=== PATIENT | female | born 1990 | race Caucasian/White ===

== ENCOUNTER 2016-07-29 | Day surgery (SDC) | payer OTHER | END 2016-07-29 11:16 | disposition home or self-care (01) | DX: Z53.9 Procedure and treatment not carried out, unspecified reason (principal) ==

== ENCOUNTER 2016-08-13 02:46 | Emergency (ER) | payer OTHER ==
[2016-08-13] MEDS ORDERED: IBUPROFEN 400 MG TABLET PO STA (03:45)
[2016-08-13] MEDS ORDERED: ACETAMINOPHEN 325 MG TABLET PO STA (03:45)
[2016-08-13] MEDS ORDERED: BENZONATATE 100 MG CAPSULE PO STA (03:45)
[2016-08-13] MEDS ORDERED: IBUPROFEN 400 MG TABLET PO ONE (03:48)
[2016-08-13] MEDS ORDERED: ACETAMINOPHEN 325 MG TABLET PO ONE (03:48)
[2016-08-13] MEDS ORDERED: BENZONATATE 100 MG CAPSULE PO ONE (03:48)
== END 2016-08-13 04:55 | disposition home or self-care (01) ==
DX: J06.9 Acute upper respiratory infection, unspecified (principal)
CPT/HCPCS: 36415; 71020; 80053; 81003; 81025; 83690; 85025; 86308; 99283; 99284; A9270

== ENCOUNTER 2016-09-09 06:16 | Day surgery (SDC) | payer OTHER ==
[2016-09-09] MEDS ORDERED: LACTATED RINGERS 1,000 ML IV ONE (06:52)
== END 2016-09-09 06:17 | disposition home or self-care (01) ==
DX: N83.201 Unspecified ovarian cyst, right side (principal); Z53.09 Procedure and treatment not carried out because of other contraindication; Z83.3 Family history of diabetes mellitus; Z82.49 Family history of ischemic heart disease and other diseases of the circulatory system; Z87.891 Personal history of nicotine dependence
CPT/HCPCS: 81025; J7120

== ENCOUNTER 2016-11-12 10:38 | Outpatient (CLI) | payer OTHER | END 2016-11-12 10:39 | disposition home or self-care (01) | DX: Z36 Encounter for antenatal screening of mother (principal) ==

== ENCOUNTER 2016-12-21 07:20 | Outpatient (CLI) | payer OTHER ==
--- NOTE | 2016-12-21 15:44 | Ultrasound Report ---
OB ULTRASOUND: 12/21/2016 CLINICAL INDICATION: anatomy. TECHNIQUE: Real-time scanning was performed with bilingual inside sales representative static images obtained. LAST MENSTRUAL PERIOD --- Clinical Age --- US Age 22 weeks 1 day EFW Hadlock 463 g EFW% Hadlock --- Heart Rate 148 bpm EDC --- US EDC 04/25/2017 BPD [place]lock 22 weeks 2 days; Mean mm 53.4 HC [place] 22 weeks 2 days; Mean mm 201.2 AC [place] 21 weeks 6 days; Mean mm 168.3 FL [place] 22 weeks 0 days; Mean mm 37.5 Presentation cephalic Placental Location anterior Cervical Length 3.4 cm Amniotic Fluid 11.6 cm FINDINGS: There is a single viable intrauterine gestation, in cephalic presentation. heart rate is 148 BPM. The placenta is anterior, without evidence of previa. Amniotic fluid volume is normal, with an KEMAL of 11.6. By size, the fetus measures 22.1 weeks (uncertain LMP). The following anatomic structures were visualized and appear normal: The intracranial contents, including the ventricles and posterior fossa; the lips and orbits; the spine; the heart, including 4 chamber view and outflow tracts, and diaphragm; the abdominal contents, including the stomach, the bilateral kidneys, and urinary bladder, as well as a normal 3 vessel cord insertion; 4 limbs. No free fluid is present. Note is made of an 8.0 x 8.0 x 6.2 cm right ovarian cyst. The left adnexa appears unremarkable. IMPRESSION: SINGLE VIABLE INTRAUTERINE GESTATION, MEASURING 22.1 WEEKS BY SIZE. NORMAL ANATOMIC SURVEY. AN 8 CM RIGHT OVARIAN CYST. MTDD
== END 2016-12-21 07:21 | disposition home or self-care (01) ==
LOC: DI 07:20
PROVIDERS: ATTEND Obstetrics & Gynecology
DX: Z34.82 Encounter for supervision of other normal pregnancy, second trimester (principal)
CPT/HCPCS: 76811

== ENCOUNTER 2016-12-27 20:45 | Emergency (ER) | payer OTHER ==
--- NOTE | 2016-12-27 20:57 | ED Physician Documentation ---
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 Pain with walking and has feeling of grinding in pubis area with walking. Pain goes down both anterior thighs but no numbness nor weakness. No noted incontinence of urine (frequency of urine same as has been having with ).) Where injury occurred: Home Timing - onset: Today Timing - duration: Hours Timing - details: Abrupt onset, Still present Quality: Pain, Aching Improved by: Rest Worsened by: Moving (low back and also worse with walking), Palpating Associated symptoms: No: Fever, Weakness, Numbness, Incontinent of urine Similar symptoms before: Diagnosis (has been having pains in pelvis and pubis with walking, deemed due to stretching of the pelvic ligaments during . Has not previously had the low back pain nor the abruptness of the pain like she did today.) Recently seen: Clinic (normal PROVIDER RELATIONS REPRESENTATIVE appt couple weeks ago.) Review of Systems Constitutional: denies: Fever, Chills Nose: denies: Rhinorrhea / runny nose, Congestion Throat: denies: Sore throat Respiratory: denies: Cough GI: reports: Nausea. denies: Abdominal Pain, Vomiting, Diarrhea : reports: Frequency. 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: Ovarian cysts : None HEENT: Chronic vision loss Psych: None Musculoskeletal: None Derm: None - Past Surgical History Past Surgical History: No - Present Medications Home Medications: Ambulatory Orders Medication Instructions Recorded Confirmed Hydrocodone/Acetaminophen [[place] 1 each PO Q6H PRN #10 tablet 12/27/16 5-325 Tablet] Ibuprofen [Motrin] 600 mg PO TID #15 tab 12/27/16 - Allergies Allergies/Adverse Reactions: Allergies Allergy/AdvReac Type Severity Reaction Status Date / Time No Known Drug Allergies Allergy Verified 12/27/16 20:53 - Social History Does the pt smoke?: Yes Smoking Status: Never smoker Does the pt drink ETOH?: No Does the pt have substance abuse?: No - Immunizations Immunizations are current?: Yes - POLST Patient has POLST: No PD ED PE NORMAL - Vitals Vital signs reviewed: Yes - General General: Alert and oriented X 3, Well developed/nourished - Cardiac Cardiac: RRR, No murmur - Respiratory Respiratory: Clear bilaterally - Abdomen Abdomen: Soft, Non tender, Other (gravid with fundus just above umbilicus. Not tender. Bedside U/S showing good movement, FHR, and fluid amount. Head is not engaged in pelvis at this time. ) - Female Female : Deferred - Rectal Rectal: Deferred - Back Back: No CVA TTP, Other (tender in low back paravertebral muscles without rash/ sores. ) - Derm Derm: Normal color, Warm and dry, No rash - Extremities Extremities: No tenderness to palpate, Normal ROM s pain, No calf tenderness / cord - Neuro Neuro: Alert and oriented X 3, No motor deficit, No sensory deficit - Psych Psych: Normal mood, Normal affect Results - Vitals Vitals: Vital Signs - 24 hr 12/27/16 12/27/16 20:49 21:59 Temperature 37 C Heart Rate 90 89 Respiratory 18 20 Rate Blood Pressure 113/72 134/72 H O2 Saturation 99 99 Oxygen O2 Source Room air - Labs Labs: Laboratory Tests 12/27/16 21:40 Urine Color YELLOW Urine Clarity CLEAR Urine pH 6.0 Ur Specific [place] >=1.030 H Urine Protein NEGATIVE Urine Glucose (UA) NEGATIVE Urine Ketones NEGATIVE Urine Occult Blood NEGATIVE Urine Nitrite NEGATIVE Urine Bilirubin NEGATIVE Urine Urobilinogen 0.2 (NORMAL) Ur Leukocyte Esterase NEGATIVE Ur Microscopic Review NOT INDICATED Urine Culture Comments NOT INDICATED PD MEDICAL DECISION MAKING - ED course Complexity details: re-evaluated patient (feeling improved with PO meds. ), considered differential (Consider pelvic ligament laxity with abrupt pain. Has pain in low back as well with radiation to thighs, but no leg weakness nor numbness. Could be abrupt disc processs but does not have indication for urgent imaging, such as MRI. ), d/w patient, d/w tour consultant (Dr. Corey) Departure - Departure Disposition: 01 Home, Self Care Clinical Impression: Pelvic pain affecting in second trimester, antepartum Condition: Stable Record reviewed to determine appropriate education?: Yes Instructions: ED Low Back Pain Injury Follow-Up: Richard Mathis MD [Provider Admit Priv/Credential] - Prescriptions: Ibuprofen [Motrin] 600 mg PO TID #15 tab Hydrocodone/Acetaminophen [[place] 5-325 Tablet] 1 each PO Q6H PRN #10 tablet PRN Reason: Pain Comments: Presume some abrupt stretch or misalignment of the pelvic ligaments/bones, though consider if there might have been a displacement of one of the lumbar discs with pressure on a nerve. At this point in the it is okay to use Ibuprofen short term and add pain meds if needed (Tylenol 4 times daily and add hydrocodone if needed for worse pain). Follow up with Dr. Mathis, call tomorrow for appt time. Massage/ chiropractic treatments are okay. If the pain persists/ concern for disc problem, your HOUSE WRECKER/PMD could consider MRI of the low back, but would not be emergent/urgent at this time. Return/follow up sooner if you develop numbness/weakness of the legs or other concerns. Discharge Date/Time: 12/27/16 22:13
[2016-12-27] MEDS ORDERED: HYDROcod/ACETAM 5/325 MG TABLET PO STA (21:22)
[2016-12-27] MEDS ORDERED: IBUPROFEN 600 MG TABLET PO STA (21:22)
[2016-12-27] MEDS ORDERED: HYDROcod/ACETAM 5/325 MG TABLET ONE (21:32)
[2016-12-27] MEDS ORDERED: IBUPROFEN 600 MG TABLET PO ONE (21:32)
[2016-12-27] MEDS ORDERED: HYDROcod/ACET 5/325 Prepack 6 PO ONE ×2 (21:49→21:57)
[2016-12-27 21:52] LABS: BILIRUBIN,URINE NEGATIVE (NEGATIVE); UA CHARGE (STRIP ONLY) YES; UR CULTURE IF IND NOT INDICATED
[2016-12-27 22:00] VITALS: BP 134/72
== END 2016-12-27 22:13 | disposition home or self-care (01) ==
LOC: ED 20:45
DX: O26.892 Other specified pregnancy related conditions, second trimester (principal); R10.2 Pelvic and perineal pain; O99.89 Other specified diseases and conditions complicating pregnancy, childbirth and the puerperium; M54.5 Low back pain; M79.652 Pain in left thigh; M79.651 Pain in right thigh
CPT/HCPCS: 81003; 99283; 99284; A9270; 81001; 87086

== ENCOUNTER 2017-02-25 13:25 | Outpatient (CLI) | payer OTHER | END 2017-02-25 13:26 | disposition home or self-care (01) | LOC: LAB 13:25 | PROVIDERS: ATTEND Obstetrics & Gynecology | DX: Z36 Encounter for antenatal screening of mother (principal) | CPT/HCPCS: 36415; 82950; 85018; 86850 ==

== ENCOUNTER 2017-03-02 13:58 | Outpatient (CLI) | payer OTHER ==
[2017-03-02 15:09] LABS: BILIRUBIN,URINE NEGATIVE (NEGATIVE)
[2017-03-02 15:12] LABS: UA CHARGE (STRIP ONLY) YES; UR CULTURE IF IND NOT INDICATED
[2017-03-02 15:58] VITALS: BP 110/63
== END 2017-03-02 15:35 | disposition home or self-care (01) ==
LOC: WFO 13:58 → FBP 13:59 → WFO 15:35
PROVIDERS: ATTEND Obstetrics & Gynecology
DX: O21.2 Late vomiting of pregnancy (principal); Z3A.32 32 weeks gestation of pregnancy; O99.89 Other specified diseases and conditions complicating pregnancy, childbirth and the puerperium; R19.7 Diarrhea, unspecified
CPT/HCPCS: 81001; 81003; 87086; 99213

== ENCOUNTER 2017-03-23 08:00 | Outpatient (CLI) | payer OTHER | END 2017-03-23 08:01 | disposition home or self-care (01) | LOC: LAB.R 08:00 | PROVIDERS: ATTEND Obstetrics & Gynecology | DX: Z34.83 Encounter for supervision of other normal pregnancy, third trimester (principal) | CPT/HCPCS: 87081 ==

== ENCOUNTER 2017-04-06 18:28 | Outpatient (CLI) | payer OTHER ==
[2017-04-06 18:45] VITALS: BP 132/79
== END 2017-04-06 19:55 | disposition home or self-care (01) ==
LOC: WFO 18:28 → FBP 18:30 → WFO 19:55
PROVIDERS: ATTEND Obstetrics & Gynecology
DX: O36.8130 Decreased fetal movements, third trimester, not applicable or unspecified (principal); Z3A.38 38 weeks gestation of pregnancy
CPT/HCPCS: 59025

== ENCOUNTER 2017-04-08 15:30 | Outpatient (CLI) | payer OTHER ==
[2017-04-08 15:53] VITALS: BP 135/87
== END 2017-04-08 16:09 | disposition home or self-care (01) ==
LOC: WFO 15:30 → FBP 15:32 → WFO 15:32
PROVIDERS: ATTEND Obstetrics & Gynecology
DX: O36.8130 Decreased fetal movements, third trimester, not applicable or unspecified (principal); Z3A.38 38 weeks gestation of pregnancy
CPT/HCPCS: 99213

== ENCOUNTER 2017-04-20 04:39 | Outpatient (CLI) | payer OTHER ==
[2017-04-20 04:57] VITALS: BP 123/79
== END 2017-04-20 07:10 | disposition home or self-care (01) ==
LOC: WFO 04:39 → FBP 04:40 → WFO 07:10
PROVIDERS: ATTEND Obstetrics & Gynecology
DX: Z34.83 Encounter for supervision of other normal pregnancy, third trimester (principal)
CPT/HCPCS: 99212

== ENCOUNTER 2017-04-23 18:43 | Inpatient (IN) | payer OTHER ==
[2017-04-23] MEDS ORDERED: fentaNYL 100 MCG/2 ML VIAL IVP PRN (20:00)
[2017-04-23] MEDS ORDERED: LACTATED RINGERS 1,000 ML IV SCH (20:00)
[2017-04-23] MEDS ORDERED: SODIUM CHLORIDE FLUSH 0.9% 10 ML SYRINGE IVP PRN (20:00)
[2017-04-23] MEDS ORDERED: ONDANSETRON 4 MG/2 ML VIAL IVP PRN (20:00)
[2017-04-23] MEDS ORDERED: OXYTOCIN/SODIUM CHLORIDE 250 ML IV ONE ×2 (20:10→23:08)
[2017-04-23 20:43] LABS: BASOPHILS # (AUTO) 0.1 10^3/uL (0.0-0.1); BASOPHILS % (AUTO) 0.6 %; EOSINOPHILS # (AUTO) 0.2 10^3/uL (0.0-0.7); EOSINOPHILS % (AUTO) 1.1 %; HCT - HEMATOCRIT 37.4 % (37.0-47.0); HGB - HEMOGLOBIN 12.6 g/dL (12.0-16.0); LYMPHOCYTES # (AUTO) 3.1 10^3/uL (1.5-3.5); LYMPHOCYTES % (AUTO) 20.6 %; MEAN CORPUSCULAR HEMOGLOBIN 29.6 pg (27.0-31.0); MEAN CORPUSCULAR HGB CONC 33.8 g/dL (32.0-36.0); MEAN CORPUSCULAR VOLUME 87.7 fL (81.0-99.0); MEAN PLATELET VOLUME 8.4 fL (7.9-10.8); MONOCYTES % (AUTO) 6.5 %; NEUTROPHILS # (AUTO) 10.7 10^3/uL (1.5-6.6); NEUTROPHILS % (AUTO) 71.2 %; RED BLOOD COUNT 4.26 10^6/uL (4.20-5.40); RED CELL DISTRIBUTION WIDTH 13.4 % (12.0-15.0)
[2017-04-23] MEDS ORDERED: fent/BUPIV 2 MCG/0.125% 0 ML EP ONE (20:58)
[2017-04-23] MEDS ORDERED: SODIUM CHLORIDE FLUSH 0.9% 10 ML SYRINGE IVP SCH (22:00)
[2017-04-23] MEDS ORDERED: MINERAL OIL LIGHT 10 ML MC ONE (22:20)
[2017-04-23] MEDS ORDERED: LIDOCAINE 1% 50 ML MDV ONE (22:20)
[2017-04-23] MEDS ORDERED: OXYTOCIN 10 UNIT/ML VIAL ONE (22:54)
[2017-04-23] MEDS ORDERED: MAGNESIUM HYDROXIDE 2,400 MG/30 ML UDC PO PRN (23:08)
[2017-04-23] MEDS ORDERED: SIMETHICONE CHEW 80 MG TABLET PO PRN (23:08)
--- NOTE | 2017-04-23 23:17 | DELIVERY NOTE ---
Delivery Note - Labor Labor: positive: Spontaneous - Delivery Method Delivery Method: positive: Spontaneous vaginal delivery - Presentation Presentation: positive: Vertex, OA - occiput anterior - Nuchal Cord Nuchal Cord: positive: None - Anesthetic Anesthetic: positive: Lidocaine - 1% plain Volume: positive: Other (10) - Amniotic Fluid Description Amniotic Fluid Description: positive: Clear - Laceration Laceration: positive: 2nd degree - Suture Suture Type: positive: Vicryl Suture Size: positive: 3-0 - Delivery Outcome Delivery Outcome: positive: Livebirth - [place] : positive: Placed in direct skin contact with mother sex: positive: Male : 9 : 9 - Cord Cord: positive: 3 vessels - Placenta Placenta: positive: Intact, Spontaneous - Estimated Blood Loss Estimated Blood Loss (in cc): 300 - Post Delivery Events Post Delivery Events: positive: No post delivery events - Delivery Comments (Free Text/Narrative) Delivery Comments (Free Text/Narrative): 26 yo with a 40w3d IUP presents to L&D with complaints of LOF. Initial exam /-2. Patient admitted to L&D. Could not tolerate epidural placement. AROM with clear fluid. of a viable male fetus, Apgars 9/9. Placenta delivered spontaneously, intact with 3VC. 2nd degree perineal laceration repaired with 3-0 vicryl. EBL 300 mL. No complications.
[2017-04-24] MEDS: CELECOXIB 100 MG CAPSULE PO SCH ×3 (00:25→20:34)
[2017-04-24] MEDS ORDERED: CELECOXIB 100 MG CAPSULE PO ONE (00:28)
[2017-04-24] MEDS: HYDROcod/ACETAM 5/325 MG TABLET PO PRN ×4 (00:55→17:28)
[2017-04-24] MEDS: WITCH HAZEL/GLYCERIN 1 EACH MED..PAD TOP PRN ×2 (01:05→20:35)
[2017-04-24] MEDS: HYDROCORTISONE/PRAMOXINE 10 GM PR PRN ×2 (01:18→20:35)
--- NOTE | 2017-04-24 02:15 | HISTORY & PHYSICAL EXAMINATION ---
DATE OF ADMISSION: 04/23/2017 IDENTIFICATION: This is a 26-year-old G3, P2-0-0-2 with a 40-3/7 week intrauterine . EDC is 04/21/2017 consistent with 13 week ultrasound. HISTORY OF PRESENT ILLNESS: The patient presents today with complaints of loss of fluid at about 1300 hours on 04/22/2017. The patient states that she had a little bit of fluid coming per vagina and the n later today, when she went to [facility], she had a larger gush of water. She states that the baby is m oving well. Denies any vaginal bleeding. The baby is moving well and she does have some small pain se condary to contractions. On examination, she is negative Nitrazine and pooling. However, on cervical examination, she is 7 cm dilated, 70% effaced, and -2 station. She is anthony approximately every 3-5 minutes. heart tones are reactive, category 1. There is good long-term variability and there are no decelerations. PAST MEDICAL HISTORY: Distant history of epilepsy, but there is no seizure activity for over 5 years. PAST SURGICAL HISTORY: Status post laparoscopic ovarian cystectomy in 09/[address] White. ALLERGIES: NO KNOWN DRUG ALLERGIES. MEDICATIONS: vitamins. SOCIAL HISTORY: She denies any tobacco, alcohol or illicit drug use. She is to Herman. They hav e 2 kids, Cristi and [place]. This is a male fetus and she does intend to breast feed. She also phyllis res an epidural for pain control and she will most likely use the [facility] for peds. PAST OBSTETRICAL HISTORY: Two term spontaneous vaginal deliveries, one at 40 weeks and the second one at 41 weeks. No bleeding or hypertensive issues. PAST GYNECOLOGIC HISTORY: She had one abnormal Pap smear with spontaneous resolution. She has been tr eated for chlamydia in the distant past. FAMILY HISTORY: Mother had type 1 diabetes and at age 44. Hypertension in her father. There is n o female carcinoma. REVIEW OF SYSTEMS Negative unless otherwise stated. OBJECTIVE: VITAL SIGNS: Temperature is 98.4, heart rate 105, blood pressure 118/76, respirations 16. O2 saturati on 99% on room air. GENERAL: The patient is a well-developed, well-nourished female in no apparent distress. e is alert and oriented x3. CARDIOVASCULAR: Rate is regular, no murmurs or rubs. PULMONARY: Lungs clear to auscultation bilaterally. ABDOMEN: Gravid, nontender. Estimated weight is 8 pounds. LABORATORY DATA: laboratories reveal that she is A positive, antibody screen negative, HIV n egative, RPR nonreactive, rubella immune. Hepatitis B surface antigen is nonreactive, 1 hour GTT is 1 33 and GBS is negative. ASSESSMENT: 1. A 26-year-old G3, P2-0-0-2 with a 40-3/7 week intrauterine . 2. Active labor. PLAN: 1. Will admit to Labor and Delivery. 2. Will obtain a CBC and type and hold. 3. Epidural for pain control. 4. Expect spontaneous vaginal delivery. JOB #: [id number] EXT JOB #:[id number]
[2017-04-24] MEDS: ACETAMINOPHEN 325 MG TABLET PO SCH ×3 (02:27→08:48)
[2017-04-24] MEDS: DOCUSATE SODIUM 100 MG CAPSULE PO SCH ×2 (08:48→20:35)
--- NOTE | 2017-04-24 09:22 | PROVIDER PROGRESS NOTE ---
Subjective - Prog Note Date Prog Note Date: 04/24/17 Prog Note Time: 09:18 - Subjective Pt reports feeling: Improved Subjective: Patient sitting in bed, on her smart phone. Ran asleep in the visitor' s bed. Baby sleeping beside Loretta in the bassinet. Loretta only got about 15 minutes of sleep. Feeling much better. Would like to go home today. Objective - Vital Signs/Intake & Output Reviewed Vital Signs: Yes Vital Signs: Vital Signs x48h Temp Pulse Resp BP Pulse Ox 04/24/17 08:52 97.7 F 78 16 130/81 H 100 04/24/17 04:32 97.9 F 67 18 133/75 H 99 Intake & Output: Intake & Output 04/21/17 04/22/17 04/23/17 04/24/17 23:59 23:59 23:59 23:59 Intake Total 1500 Output Total 900 Balance 600 - Objective General Appearance: positive: No acute distress Neurologic/Psychiatric: positive: Oriented x3 - Lab Results Fish Bones: 04/23/17 20:13 Other Labs: Lab Results x24hrs 04/23/17 Range/Units 20:13 WBC 15.0 H (4.8-10.8) x10^3/uL RBC 4.26 (4.20-5.40) 10^6/uL Hgb 12.6 (12.0-16.0) g/dL Hct 37.4 (37.0-47.0) % MCV 87.7 (81.0-99.0) fL MCH 29.6 (27.0-31.0) pg MCHC 33.8 (32.0-36.0) g/dL RDW 13.4 (12.0-15.0) % Plt Count 245 (130-450) 10^3/uL MPV 8.4 (7.9-10.8) fL Neut # 10.7 H (1.5-6.6) 10^3/uL Lymph # 3.1 (1.5-3.5) 10^3/uL [place] # 1.0 (0.0-1.0) 10^3/uL Eos # 0.2 (0.0-0.7) 10^3/uL Baso # 0.1 (0.0-0.1) 10^3/uL Absolute Nucleated RBC 0.00 x10^3/uL Nucleated RBC % 0.0 /100WBC Assessment/Plan - Problem List (1) Delivery normal Impression: 26 yo S/p 04/23/2017 Normal recovery Routine care Anticipate discharge to home tomorrow. Rx fax'ed to [facility]. Handwritten Rx for vicodin ready for her. Patient to follow up with me at [facility] in 6 weeks for a routine exam. Will also discuss contraception at that time. was discussing permanent sterilization for both himself and Loretta. Call for worsening fevers, chills, abdominal pain or vaginal bleeding.
--- NOTE | 2017-04-24 12:10 | PROVIDER PROGRESS NOTE ---
Subjective - Prog Note Date Prog Note Date: 04/24/17 Prog Note Time: 12:07 - Subjective Pt reports feeling: Improved Objective - Vital Signs/Intake & Output Vital Signs: Vital Signs x48h Temp Pulse Resp BP Pulse Ox 04/24/17 08:52 97.7 F 78 16 130/81 H 100 04/24/17 04:32 97.9 F 67 18 133/75 H 99 Intake & Output: Intake & Output 04/21/17 04/22/17 04/23/17 04/24/17 23:59 23:59 23:59 23:59 Intake Total 1500 Output Total 900 Balance 600 - Lab Results Fish Bones: 04/23/17 20:13 Other Labs: Lab Results x24hrs 04/23/17 Range/Units 20:13 WBC 15.0 H (4.8-10.8) x10^3/uL RBC 4.26 (4.20-5.40) 10^6/uL Hgb 12.6 (12.0-16.0) g/dL Hct 37.4 (37.0-47.0) % MCV 87.7 (81.0-99.0) fL MCH 29.6 (27.0-31.0) pg MCHC 33.8 (32.0-36.0) g/dL RDW 13.4 (12.0-15.0) % Plt Count 245 (130-450) 10^3/uL MPV 8.4 (7.9-10.8) fL Neut # 10.7 H (1.5-6.6) 10^3/uL Lymph # 3.1 (1.5-3.5) 10^3/uL [place] # 1.0 (0.0-1.0) 10^3/uL Eos # 0.2 (0.0-0.7) 10^3/uL Baso # 0.1 (0.0-0.1) 10^3/uL Absolute Nucleated RBC 0.00 x10^3/uL Nucleated RBC % 0.0 /100WBC Assessment/Plan - Problem List (1) Delivery normal Impression: Patient has verbalized to Dr. Waterman that she wants to leave [place]. Willing to leave at 11 PM tonight if everything OK with the baby. Patient stable and doing well. Will discharge patient home tonight if baby makes criteria. Discharge Plan Disposition: Home, Self Care Condition: Good Diet: Regular Activity Restrictions: Activity as Tolerated Shower Restrictions: No Driving Restrictions: Yes (Do not drive after taking vicodin) No Smoking: If you smoke, Please STOP! Call for help.
[2017-04-24 20:13] VITALS: BP 149/75
--- NOTE | 2017-04-24 22:58 | Labor Flowsheet ---
Labor Flowsheet Datetime Report Generated by CPN: 04/24/2017 22:57 Datetime: 04/24/2017 20:05 VITAL SIGNS NBP Sys/Honey/Mean (mmHg): 149 : 75 : 88 Pulse: 81 SpO2 (%): 100 Datetime: 04/23/2017 22:40 UTERINE ACTIVITY Monitor Mode: External Frequency (min): 2-4 Quality: Strong Duration (sec): 90-120 Pattern: Normal: <= 5 Contractions in 10 Minutes Resting Tone (Palpate): Relaxed Contraction Comments: pushing ASSESSMENT A Monitor Mode: External US FHR Baseline Rate : 130 Variability: Moderate 6-25 bpm Accelerations: 15X15 Decelerations: Early Actions for Decelerations: Oxygen Applied Category: Category II Datetime: 04/23/2017 22:33 PATIENT CARE Patient Position/Activity: Semi-Fowlers (Annotations: starting to push) Datetime: 04/23/2017 22:29 Comments: earlies with some contractions to 110 with return to baseline Datetime: 04/23/2017 22:24 Vaginal Bleeding: None Cervix, Consistency: Soft Cervix, Position: Anterior STAGE 2 Pushing: Urge to Push Datetime: 04/23/2017 22:11 VAGINAL EXAM Dilatation (cm): 7.0 Effacement (%): 100 Station: 0 Exam by: Dr. Ribera Membrane Status: Ruptured Membranes Rupture Method: Artificial Amniotic Fluid Color: Clear Amniotic Fluid Amount: Moderate Amniotic Fluid Odor: Normal Membrane Comments: AROM performed by Dr. Ribera Datetime: 04/23/2017 22:05 COMMUNICATION LaborFlag: Labor Datetime: 04/23/2017 21:56 MEDICATIONS Analgesics/Sedatives: Fentanyl (mcg) @ (Annotations: 50) Datetime: 04/23/2017 21:37 FHR Baseline Changes: No Baseline Change Comfort Measures: out of jacuzzi, back to bed per pt request. Datetime: 04/23/2017 21:07 ANESTHESIA Anesthesia Plans: Other (Annotations: pt has decided she does not want epidural. Difficulty holdin g still for placement. Per anesthesia, she can reattempt later if pt requests and time allows.) Datetime: 04/23/2017 20:55 Anesthesia Interview: E Epidural Positioning: Sitting Datetime: 04/23/2017 20:35 Anesthesia Comments: anesthesia called and notified of pt request for epidural
--- NOTE | 2017-04-25 06:20 | DISCHARGE SUMMARY ---
DATE OF ADMISSION: 04/23/2017 DATE OF DISCHARGE: 04/24/2017 DIAGNOSES ON ADMISSION 1. A 26-year-old G3, P2-0-0-2 with a 40-3/7-week intrauterine . 2. Active labor. DIAGNOSES ON DISCHARGE 1. A 26-year-old G3, P3-0-0-3 status post spontaneous vaginal delivery on 04/23/2017. 2. Normal recovery. BRIEF HISTORY: This is a patient of [facility] who presented on 04/23/2017 with comp laints of loss of fluid. She was found to be in active labor at 7 cm dilation, 70% effacement and -2 station. The patient was admitted to the hospital. She could not tolerate an epidural and therefore d id not have any pain control for delivery. She spontaneously delivered a male with Apgars of 9 and 9 at 1 and 5 minutes, respectively. Baby weighed 3839 grams. The patient sustained a second-degr ee perineal laceration that was repaired with 3-0 Vicryl. EBL was 300 mL. There were no complications . Her course has been unremarkable. She is ambulating and tolerating a regular diet. She was urinating without difficulty, and her pain is controlled with medications. She will be discharged to home on 04/25/2017. I have already faxed a prescription over to the [facility] pharmacy for her care including ibuprofen and docusate. A handwritten prescription for Vicodin is available for the p atient if she so desires. She is to see me in [address] [facility] for a routine po stpartum visit. We will discuss contraception at that time. She may be considering permanent steriliz ation. She is to call should she have any worsening fevers, chills, abdominal pain or vaginal bleedin g. JOB #: [id number] EXT JOB #:[id number]
== END 2017-04-24 22:25 | disposition home or self-care (01) | DRG 775 ==
LOC: WFO 18:43 → FBP 18:44 → WFO 19:59 → FBP 20:00
PROVIDERS: ADMIT Obstetrics & Gynecology; ATTEND Obstetrics & Gynecology
PROC: 10E0XZZ Delivery of Products of Conception, External Approach (ICD-10-PCS; principal; 2017-04-23)
PROC: 0KQM0ZZ Repair Perineum Muscle, Open Approach (ICD-10-PCS; 2017-04-23)
PROC: 10907ZC Drainage of Amniotic Fluid, Therapeutic from Products of Conception, Via Natural or Artificial Opening (ICD-10-PCS; 2017-04-23)
DX: O70.1 Second degree perineal laceration during delivery (principal); Z37.0 Single live birth; Z3A.40 40 weeks gestation of pregnancy
CPT/HCPCS: 85025; 99211

== ENCOUNTER 2017-09-18 20:44 | Emergency (ER) | payer OTHER ==
[2017-09-18 21:23] LABS: BILIRUBIN,URINE NEGATIVE (NEGATIVE); GLUCOSE, URINE (UA) NEGATIVE (NEGATIVE); KETONES,URINE (UA) NEGATIVE (NEGATIVE); LEUKOCYTE ESTERASE, URINE NEGATIVE (NEGATIVE); NITRITE,URINE NEGATIVE (NEGATIVE); OCCULT BLOOD,URINE NEGATIVE (NEGATIVE); PH,URINE 6.5 PH (5.0-7.5); PROTEIN,URINE NEGATIVE (NEGATIVE); UROBILINOGEN,URINE 1 (NORMAL) E.U./dL (NORMAL)
[2017-09-18 21:29] LABS: CLARITY,URINE CLEAR (CLEAR); HCG UR QUAL NEGATIVE
[2017-09-18 21:51] LABS: BACTERIA,URINE None Seen /HPF (None Seen); RBC,URINE None Seen /HPF (0-5); SQUAMOUS EPITHELIAL CELL,UR NONE SEEN (<= Few)
--- NOTE | 2017-09-18 23:08 | ED Physician Documentation ---
History of Present Illness - Stated complaint Stated Complaint: FEMALE - Chief complaint Chief Complaint: Abd Pain - History obtained from History obtained from: Patient - History of Present Illness Timing: How many days ago (3-4) Pain level max: 8 Pain level now: 8 Improved by: nothing Worsened by: sex - Additonal information Additional information: Patient is a 26 yo F. with LLQ pain radiating to the back. Mirena placed 1 month ago. Intermittent heavy bleeding. Noticed a vaginal odor during this time as well. States no changes in sexual partners. Had chlamydia in the past. 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 : None HEENT: Chronic vision loss Psych: None Musculoskeletal: None Derm: None - Past Surgical History Past Surgical History: No - Present Medications Home Medications: Ambulatory Orders Medication Instructions Recorded Confirmed Metronidazole [Flagyl] 500 mg PO BID #14 tablet 09/18/17 - Allergies Allergies/Adverse Reactions: Allergies Allergy/AdvReac Type Severity Reaction Status Date / Time No Known Drug Allergies Allergy Verified 09/18/17 20:51 - Social History Does the pt smoke?: Yes Smoking Status: Current every day smoker Does the pt drink ETOH?: No Does the pt have substance abuse?: No - Immunizations Immunizations are current?: Yes - POLST Patient has POLST: No PD ED PE NORMAL - Vitals Vital signs reviewed: Yes - General General: Alert and oriented X 3, No acute distress - HEENT HEENT: Moist mucous membranes - Neck Neck: Supple, no meningeal sign - Cardiac Cardiac: RRR - Respiratory Respiratory: No respiratory distress, Clear bilaterally - Abdomen Abdomen: Soft, Non tender, Non distended - Female Female : Director Product Management present (Eva RN), Other (slight white discharge. odor present. no CMT. no adnexal mass. no lesions. ) - Back Back: No CVA TTP - Derm Derm: Warm and dry - Extremities Extremities: No edema - Neuro Neuro: Alert and oriented X 3 - Psych Psych: Normal mood, Normal affect Results - Vitals Vitals: Vital Signs - 24 hr 09/18/17 09/18/17 20:46 23:45 Temperature 36.7 C 36.8 C Heart Rate 101 H 88 Respiratory 16 18 Rate Blood Pressure 128/78 130/80 O2 Saturation 97 98 Oxygen O2 Source Room air - Labs Labs: Microbiology 09/18/17 22:45 Wet Prep - Final Genital - Cervix 09/18/17 22:45 ERICA Preparation - Final Fluid - Cervix Laboratory Tests 09/18/17 21:13 Urine Color YELLOW Urine Clarity CLEAR Urine pH 6.5 Ur Specific [place] 1.025 Urine Protein NEGATIVE Urine Glucose (UA) NEGATIVE Urine Ketones NEGATIVE Urine Occult Blood NEGATIVE Urine Nitrite NEGATIVE Urine Bilirubin NEGATIVE Urine Urobilinogen 1 (NORMAL) Ur Leukocyte Esterase NEGATIVE Urine RBC None Seen Urine WBC 0-3 Ur Squamous Epith Cells NONE SEEN Urine Bacteria None Seen Urine Culture Comments NOT INDICATED Urine HCG, Qual NEGATIVE PD MEDICAL DECISION MAKING - ED course Complexity details: reviewed results, re-evaluated patient, considered differential, d/w patient ED course: Patient is a 26-year-old female who presents to the emergency department with what appears to be bacterial vaginitis clinically. Will place on Flagyl for this. A bedside ultrasound was performed to confirm IUD placement in the uterus. String is also visible on pelvic exam. Does not appear to have migrated. Possible that she may have a left ovarian cyst as well, but declines an ultrasound at this time. I do not think she has torsion. Abdomen is soft, nontender nondistended. She did take her on Motrin for pain and declines anything else for pain here. Patient does have an appointment in a few days with her core driller. Patient counseled regarding signs and symptoms for which I believe and urgent re-evaluation would be necessary. Patient with good understanding of and agreement to plan and is comfortable going home at this time This document was made in part using voice recognition software. While efforts are made to proofread this document, sound alike and grammatical errors may occur. Departure - Departure Disposition: Home, Self Care Clinical Impression: Bacterial vaginitis Condition: Good Instructions: ED Vaginosis Bacterial Follow-Up: your,doctor in 1 week [Other] Prescriptions: Metronidazole [Flagyl] 500 mg PO BID #14 tablet Comments: Return if you worsen. Do not drink alcohol while taking the metronidazole. Discharge Date/Time: 09/18/17 23:46
[2017-09-18] MEDS ORDERED: metroNIDAZOLE 250 MG TABLET PO STA (23:37)
[2017-09-18 23:46] VITALS: BP 130/80
== END 2017-09-18 23:46 | disposition home or self-care (01) ==
LOC: ED 20:44
DX: N76.0 Acute vaginitis (principal); Z97.5 Presence of (intrauterine) contraceptive device; F17.200 Nicotine dependence, unspecified, uncomplicated
CPT/HCPCS: 81001; 81025; 87210; 87220; 99283; A9270; 87086

== ENCOUNTER 2017-11-08 21:18 | Emergency (ER) | payer OTHER ==
--- NOTE | 2017-11-08 21:54 | XRAY Report ---
EXAM: CHEST RADIOGRAPHY EXAM DATE: 11/08/2017 09:36 PM. CLINICAL HISTORY: Productive cough and chest pain for 3 weeks. COMPARISON: 08/13/2016. TECHNIQUE: 2 views. FINDINGS: Lungs/Pleura: No focal opacities evident. No pleural effusion. No pneumothorax. Normal volumes. Mediastinum: Heart and mediastinal contours are unremarkable. Other: No bony abnormality identified. IMPRESSION: Normal 2-view chest radiography. [facility] Referring Provider Line: [phone] SITE ID: [id number]
--- NOTE | 2017-11-08 21:54 | XRAY Preliminary Report ---
Exam: XR CHEST 2 VIEW X-RAY IMPRESSION: Normal 2-view chest radiography. [facility] SITE ID: [id number]
[2017-11-08] MEDS ORDERED: ALBUTEROL NEB 2.5 MG/3 ML INH STA (22:29)
--- NOTE | 2017-11-08 22:38 | ED Physician Documentation ---
PD HPI URI - Stated complaint Stated Complaint: CHEST PX/BARROW - Chief complaint Chief Complaint: Resp - History obtained from History obtained from: Patient - History of Present Illness Timing - onset: How many weeks ago (3) Timing duration: Weeks (3) Timing details: Waxing and waning Pain level max: 3 Pain level now: 3 Associated symptoms: Nasal congestion, Rhinorrhea, Dry cough, Chest pain (with coughing), Dyspnea. No: Fever, Chills Contributing factors: Sick contact. No: Immunocompromised, Unimmunized Improves by: Rest Worsened by: Activity, Breathing Similar symptoms before: Has not had sx before Recently seen: Not recently seen Review of Systems Constitutional: denies: Fever, Myalgias Nose: reports: Rhinorrhea / runny nose, Congestion Respiratory: reports: Cough GI: denies: Abdominal Pain, Nausea, Vomiting : denies: Dysuria, Frequency, Hesitancy, Now EGA Skin: denies: Rash Musculoskeletal: denies: Neck pain, Back pain Neurologic: denies: Headache PD PAST MEDICAL HISTORY - Past Medical History Cardiovascular: None Respiratory: None Neuro: Seizure disorder Endocrine/Autoimmune: Other GI: None LITIGATION MANAGER: Ovarian cysts : None HEENT: Chronic vision loss Psych: None Musculoskeletal: None Derm: None - Past Surgical History Past Surgical History: No - Present Medications Home Medications: Ambulatory Orders Medication Instructions Recorded Confirmed Albuterol Sulf [Ventolin Hfa 1 - 2 puffs INH Q4HR PRN #1 inhaler 11/08/17 Inhaler] Benzonatate [Tessalon Perle] 100 - 200 mg PO TID PRN #30 capsule 11/08/17 Cetirizine HCl/Pseudoephedrine 1 each PO BID PRN #30 tab.er.12h 11/08/17 [Zyrtec-D Tablet] - Allergies Allergies/Adverse Reactions: Allergies Allergy/AdvReac Type Severity Reaction Status Date / Time No Known Drug Allergies Allergy Verified 11/08/17 21:24 - Social History Does the pt smoke?: Yes Smoking Status: Current every day smoker Does the pt drink ETOH?: No Does the pt have substance abuse?: No - Immunizations Immunizations are current?: Yes - POLST Patient has POLST: No PD ED PE NORMAL - Vitals Vital signs reviewed: Yes - General General: Alert and oriented X 3, No acute distress - HEENT HEENT: Ears normal, Moist mucous membranes, Pharynx benign - Neck Neck: Supple, no meningeal sign, No adenopathy - Cardiac Cardiac: RRR - Respiratory Respiratory: No respiratory distress, Other (mild wheezing B) - Abdomen Abdomen: Soft, Non tender, Non distended - Derm Derm: Warm and dry - Neuro Neuro: Alert and oriented X 3 - Psych Psych: Normal mood, Normal affect Results - Vitals Vitals: Vital Signs - 24 hr 11/08/17 11/08/17 22:38 23:06 Temperature 36.4 C L Heart Rate 102 H 102 H Respiratory 12 18 Rate Blood Pressure 127/89 H O2 Saturation 99 Oxygen O2 Source Room air - Rads (name of study) cxr Radiology: Prelim report reviewed, EMP read contemporaneously, See rad report ( normal) PD MEDICAL DECISION MAKING - ED course Complexity details: reviewed results, re-evaluated patient, considered differential, d/w patient ED course: Patient is a 27-year-old female who presents to the emergency department with what appears to be a viral upper respiratory infection. She feels better after albuterol treatment and will prescribe an inhaler for home. No acute findings on chest x-ray. She is very well-appearing, nontoxic. No hypoxia. Patient counseled regarding signs and symptoms for which I believe and urgent re- evaluation would be necessary. Patient with good understanding of and agreement to plan and is comfortable going home at this time This document was made in part using voice recognition software. While efforts are made to proofread this document, sound alike and grammatical errors may occur. Departure - Departure Disposition: 01 Home, Self Care Clinical Impression: Upper respiratory tract infection Qualifiers: URI type: unspecified viral URI Qualified Code(s): J06.9 - Acute upper respiratory infection, unspecified Condition: Good Instructions: ED URI Viral Follow-Up: your,doctor in 1 week [Other] Prescriptions: Albuterol Sulf [Ventolin Hfa Inhaler] 1 - 2 puffs INH Q4HR PRN #1 inhaler PRN Reason: Shortness Of Air/Wheezing Benzonatate [Tessalon Perle] 100 - 200 mg PO TID PRN #30 capsule PRN Reason: Cough Cetirizine HCl/Pseudoephedrine [Zyrtec-D Tablet] 1 each PO BID PRN #30 tab.er.12h PRN Reason: Nasal Congestion Comments: This should improve over the next week. Drink plenty of fluids and rest. Return if you worsen. Your x-ray is normal tonight Discharge Date/Time: 11/08/17 23:13
[2017-11-08 23:06] VITALS: BP 127/89
== END 2017-11-08 23:13 | disposition home or self-care (01) ==
LOC: ED 21:18
DX: J06.9 Acute upper respiratory infection, unspecified (principal); F17.200 Nicotine dependence, unspecified, uncomplicated
CPT/HCPCS: 71046; 94640; 94664; 99283